=== PATIENT | female | born 1975 | race Caucasian/White ===

== ENCOUNTER 2021-05-14 12:34 | Emergency (ER) | payer SELFPAY ==
[2021-05-14] MEDS ORDERED: Ondansetron ODT 4 MG TAB ONE (13:17)
[2021-05-15 07:56] LABS: SARS-CoV-2 PCR by NAA Not Detected (NotDetected)
== END 2021-05-14 13:50 | disposition home or self-care (01) ==
LOC: NAV ERS 12:34
DX: B34.9 Viral infection, unspecified (principal); Z20.822 Contact with and (suspected) exposure to COVID-19; F17.210 Nicotine dependence, cigarettes, uncomplicated
CPT/HCPCS: 99283; Q0162; U0003; U0005

== ENCOUNTER 2024-08-07 12:37 | Emergency (ER) | payer BC, SELFPAY ==
[2024-08-07] MEDS ORDERED: Amoxicillin/Potassium Clav 875 MG TAB ONE (12:56)
== END 2024-08-07 13:17 | disposition home or self-care (01) ==
LOC: NAV ERS 12:37
DX: K04.7 Periapical abscess without sinus (principal); K02.9 Dental caries, unspecified; F17.210 Nicotine dependence, cigarettes, uncomplicated
CPT/HCPCS: 99282

== ENCOUNTER 2025-03-16 18:47 | Emergency (ER) | payer BC ==
[2025-03-16] MEDS ORDERED: Naproxen 500 MG TAB ONE (19:06)
== END 2025-03-16 20:10 | disposition home or self-care (01) ==
LOC: NAV ERS 18:47
DX: S43.401A Unspecified sprain of right shoulder joint, initial encounter (principal); F17.210 Nicotine dependence, cigarettes, uncomplicated; W01.0XXA Fall on same level from slipping, tripping and stumbling without subsequent striking against object, initial encounter
CPT/HCPCS: 99283

== ENCOUNTER 2025-05-07 07:22 | Emergency (ER) | payer BC ==
[2025-05-07] MEDS ORDERED: Ibuprofen 200 MG TAB ONE (08:10)
== END 2025-05-07 08:25 | disposition home or self-care (01) ==
LOC: NAV ERS 07:22
DX: J32.9 Chronic sinusitis, unspecified (principal); B97.89 Other viral agents as the cause of diseases classified elsewhere; R03.0 Elevated blood-pressure reading, without diagnosis of hypertension; F17.210 Nicotine dependence, cigarettes, uncomplicated; Z79.899 Other long term (current) drug therapy
CPT/HCPCS: 87426; 99283; Q0162

== ENCOUNTER 2025-08-23 06:00 | Emergency (ER) | payer BC ==
[2025-08-23 06:50] LABS: Hematocrit 49.1 % (36.0-47.0); Hemoglobin 16.9 g/dL (12.0-16.0); Mean Corpuscular Hemoglobin 31.8 pg (27.0-31.0); Mean Corpuscular Volume 92.3 fl (78.0-98.0); Platelet Count 245 10x3/uL (130-400); Red Blood Cell (RBC) Count 5.32 mill/uL (4.20-5.40); White Blood Cell (WBC) Count 9.2 10x3/uL (4.8-10.8)
[2025-08-23 07:01] LABS: MDiff Complete? YES; Platelet Adequacy Comment Appears Adequate; Toxic Granulation SLIGHT
[2025-08-23 07:24] LABS: ALT (SGPT) 94 U/L (Less than 34); AST (SGOT) 75 U/L (11-34); Albumin 4.0 g/dL (3.1-4.5); Alkaline Phosphatase 109 U/L (40-110); Anion Gap 17 mmol/L (10-20); BUN (Urea Nitrogen) 10 mg/dL (7.0-18.7); Bilirubin, Total 0.2 mg/dL (0.3-1.2); Calc. Creatinine Clearance 0 mL/min (70-130); Calcium 8.9 mg/dL (7.8-10.44); Carbon Dioxide 15 mmol/L (22-29); Chloride 105 mmol/L (98-107); Globulin 3.1 g/dL (2.4-3.5); Glucose 124 mg/dL (70-105); Potassium 3.7 mmol/L (3.5-5.1); Sodium 133 mmol/L (136-145)
[2025-08-23] MEDS ORDERED: cefTRIAXone (ROCEPHIN) 1 GM VIAL ONE (07:31)
== END 2025-08-23 07:52 | disposition home or self-care (01) ==
LOC: NAV ERS 06:00
DX: J18.9 Pneumonia, unspecified organism (principal); J01.00 Acute maxillary sinusitis, unspecified; F17.210 Nicotine dependence, cigarettes, uncomplicated
CPT/HCPCS: 71046; 80053; 85025; 87428; 94640; 96374; 96375; J0696; J2919; J7030